=== PATIENT | female | born 1985 | race Caucasian/White ===

== ENCOUNTER 2019-04-21 09:54 | Day surgery (SDC) | payer MEDICAID ==
[~2019-04-21] VITALS: Ht 165.1 cm; Wt 55.0 kg
[~2019-04-21 09:54] MED LIST: LIDOcaine Viscous 15ml cup ONE; MIDAZolam 5mg/5ml vial ONE; fentaNYL/PF 50MCG/1 ML 2ML syringe ONE
[2019-04-21 10:00] VITALS: BP 117/76
[2019-04-21] MEDS ORDERED: NO HOME MEDS (10:34)
[2019-04-21 11:22] VITALS: BP 108/74
[2019-04-21 11:32] VITALS: BP 102/76
[2019-04-21 11:42] VITALS: BP 108/73
== END 2019-04-21 12:05 | disposition home or self-care (01) ==
LOC: GI LAB 09:54
PROVIDERS: ATTEND Internal Medicine Gastroenterology
DX: R19.7 Diarrhea, unspecified (principal); K29.50 Unspecified chronic gastritis without bleeding
CPT/HCPCS: 43239; 99152; J2250; J3010; J7040; A4620